=== PATIENT | female | born 1965 | race Caucasian/White ===

== ENCOUNTER → 2021-02-17 | Day surgery (SDC) | payer BC ==
[~2021-02-17] MED LIST: AIRBORNE CHEWA1 EAC1 PO; MUCINEX D TABL1 EAC1 PO; VITAMIN D PO; ZINC PO; [UNRECOGNIZED DRUG - OTHER] PO
[2021-02-17 15:45] VITALS: BP 112/70
== END | disposition home or self-care (01) ==
LOC: OR 11:02
PROVIDERS: ATTEND Internal Medicine Gastroenterology
DX: Z12.11 Encounter for screening for malignant neoplasm of colon (principal); Z86.010 Personal history of colon polyps; K64.8 Other hemorrhoids; U07.1 COVID-19; Z88.1 Allergy status to other antibiotic agents; Z79.82 Long term (current) use of aspirin
CPT/HCPCS: 36415; 45378; 82948; 93005; U0002